=== PATIENT | male | born 1970 | race Asian ===

== ENCOUNTER 2025-01-09 22:20 | Emergency (ER) | payer OTHER ==
[~2025-01-09] VITALS: Ht 165.1 cm; Wt 86.2 kg
[2025-01-09 22:23] VITALS: BP 128/75; TEMP 98; O2SAT 98
[2025-01-09] MEDS: CIPROFLOXACIN HCL 250 MG TABLET PO ONE (23:00)
[2025-01-10] MEDS ORDERED: CIPROFLOXACIN HCL 500 MG TABLET ONE (00:28)
[2025-01-10] MEDS: AZITHROMYCIN 250 MG TABLET PO ONE (00:31)
[2025-01-10] MEDS ORDERED: AZITHROMYCIN 250 MG TABLET ONE (00:31)
== END 2025-01-10 00:33 | disposition home or self-care (01) ==
LOC: ER 22:32
DX: Z13.89 Encounter for screening for other disorder (principal); Z88.1 Allergy status to other antibiotic agents